=== PATIENT | female | born 1990 | race Caucasian/White ===

== ENCOUNTER 2019-04-22 15:07 | Emergency (ER) | payer MEDICAID ==
[~2019-04-22] VITALS: Ht 157.5 cm; Wt 126.6 kg
[~2019-04-22 15:07] MED LIST: ACET-787 PO; AMOX-842 PO; SULF-58 PO
[2019-04-22 15:21] VITALS: BP 148/83
--- NOTE | 2019-04-22 15:41 | NUR ---
PT BIB SELF C/O BL LEG PAIN X1 MONTH. PT REPORTS 10/10 SHARP PAIN ON LEGS THAT RADIATES TO BL THIGHS AND INCREASES W/ ADL'S. PT SEEN AT [facility] 1 MONTH AGO AND RECIEVED ABX TX FOR 1 MONTH, PT FINISHED ABX BUT REPORTS THAT PAIN AND SWELLING HAS INCREASES. + ERYTHEMA AND 1+ PITTING EDEMA IN BL LEGS. PT REPORTS PRESSURE CP X LAST NIGHT AND SOB, STATING SHE HAS ANXIETY. VSS. ER TO SEE PT. MEDHX:CHF, HTN, DM RX:NON-COMPLIANT
[2019-04-22] MEDS ORDERED: KETOROLAC 30 MG/ML VIAL IVP ONE (15:55)
[2019-04-22] MEDS ORDERED: NITROGLYCERIN 2% 1 GM PKT TP ONE (15:55)
--- NOTE | 2019-04-22 16:00 | NUR ---
PT BP 102/44, ER INFORMED, HOLD NITRO AT THIS TIME.
[2019-04-22] MEDS ORDERED: ceFAZolin 1,000 MG VIAL ONE (16:04)
--- NOTE | 2019-04-22 16:54 | NUR ---
LAB AT BEDSIDE AT THIS TIME
--- NOTE | 2019-04-22 17:09 | NUR ---
PT UNABLE TO GIVE URINE AT THIS TIME, SLADE ADAIR NOTIFIED
--- NOTE | 2019-04-22 17:31 | NUR ---
LAB AT BEDSIDE AT THIS TIME.
[2019-04-22 18:21] LABS: BASOPHILS % (AUTO) 0.4 % (0.0-2.0); EOSINOPHILS # (AUTO) 0.2 K/uL (0-0.4); EOSINOPHILS % (AUTO) 2.2 % (0.0-4.0); HEMOGLOBIN 9.6 g/dL (12.0-16.0); LYMPHOCYTES # (AUTO) 2.7 K/uL (2.5-16.5); LYMPHOCYTES % (AUTO) 25.2 % (20.5-51.1); MEAN CORPUSCULAR HEMOGLOBIN 21 pg (27-31); MEAN CORPUSCULAR HGB CONC 31 g/dL (33-37); MEAN CORPUSCULAR VOLUME 67.9 fL (80-94); MONOCYTES # (AUTO) 0.5 K/uL (0.8-1.0); MONOCYTES % (AUTO) 4.5 % (1.7-9.3); NEUTROPHILS # (AUTO) 7.2 K/uL (1.8-7.7); NEUTROPHILS % (AUTO) 67.7 % (42.2-75.2); PLATELET COUNT (AUTO) 239 K/uL (140-450); RED BLOOD CELL COUNT(AUTO) 4.57 MIL/uL (4.20-5.40); RED CELL DISTRIBUTION WIDTH 16.8 % (11.6-13.7)
--- NOTE | 2019-04-22 18:22 | NUR ---
PT STILL UNABLE TO PROVIDE URINE DENIA, SLADE ADAIR INFORMED
[2019-04-22 18:29] LABS: CREATININE 0.6 mg/dL (0.6-1.3)
[2019-04-22 18:35] LABS: ALBUMIN 3.1 g/dL (3.4-5.0); TOTAL BILIRUBIN 0.2 mg/dL (0.0-1.0)
[2019-04-22 18:37] LABS: WHITE BLOOD COUNT (AUTO) 11.2 K/uL (4.8-10.8)
[2019-04-22 19:10] VITALS: BP 111/68
--- NOTE | 2019-04-22 19:10 | NUR ---
Patient discharged with v/s stable. Written and verbal after care instructions given and explained. Patient alert, oriented and verbalized understanding of instructions. Ambulatory with steady gait. All questions addressed prior to discharge. ID band removed. Patient advised to follow up with PMD. Rx of CEPHALEXIN AND NAPROSYN given. Patient educated on indication of medication including possible reaction and side effects. Opportunity to ask questions provided and answered. PT PROVIDED WITH MEAL AND IS WEARING WEATHER APPROPRIATE CLOTHING.
== END 2019-04-22 19:10 | disposition home or self-care (01) ==
LOC: MED 15:07
DX: L03.115 Cellulitis of right lower limb (principal); L03.116 Cellulitis of left lower limb; I11.0 Hypertensive heart disease with heart failure; E11.9 Type 2 diabetes mellitus without complications; F15.10 Other stimulant abuse, uncomplicated; I50.9 Heart failure, unspecified; Z90.49 Acquired absence of other specified parts of digestive tract
CPT/HCPCS: 36415; 71045; 80053; 83605; 83880; 84484; 85025; 87040; 93005; 96365; 96375; 99284; J0690; J1885; J7060; Q0092

== ENCOUNTER 2020-07-05 14:53 | Emergency (ER) | payer MEDICAID ==
[~2020-07-05] VITALS: Ht 157.5 cm; Wt 129.3 kg
[2020-07-05 15:11] VITALS: BP 112/51
--- NOTE | 2020-07-05 15:15 | NUR ---
VOMITING X5 DAYS, UNABLE TO HOLD DOWN FOOD, STOPPED TAKING METFORMIN 2 MONTHS AGO MED HX: DM2 RX: METFORMIN
[2020-07-05 16:15] VITALS: BP 112/51
--- NOTE | 2020-07-05 16:15 | NUR ---
Patient discharged with v/s stable. Written and verbal after care instructions given and explained. Patient alert, oriented and verbalized understanding of instructions. Ambulatory with steady gait. All questions addressed prior to discharge. ID band removed. Patient advised to follow up with PMD. Rx of naprosyn, zofran given. Patient educated on indication of medication including possible reaction and side effects. Opportunity to ask questions provided and answered.
--- NOTE | 2020-07-05 16:15 | NUR ---
novel swab collected and sent to lab
== END 2020-07-05 16:15 | disposition home or self-care (01) ==
LOC: MED 14:53
DX: R11.2 Nausea with vomiting, unspecified (principal); Z20.828 Contact with and (suspected) exposure to other viral communicable diseases; M79.10 Myalgia, unspecified site; I11.0 Hypertensive heart disease with heart failure; I50.9 Heart failure, unspecified; E11.9 Type 2 diabetes mellitus without complications; Z90.49 Acquired absence of other specified parts of digestive tract
CPT/HCPCS: 99283; U0003

== ENCOUNTER 2021-11-21 06:49 | Observation (INO) | payer MEDICAID ==
[~2021-11-21] VITALS: Ht 160 cm; Wt 116.1 kg
[2021-11-21 06:52] VITALS: BP 120/63
--- NOTE | 2021-11-21 06:57 | NUR ---
Dr. Gant at triage to exam patient.
[2021-11-21] MEDS ORDERED: CLINDAMYCIN 600 MG in DEXTROSE 5% 50 ML IV ONE (07:00)
[2021-11-21] MEDS ORDERED: NACL 0.9% 500 ML IV ONE (07:00)
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
[2021-11-21 07:15] VITALS: BP 120/63
--- NOTE | 2021-11-21 07:17 | NUR ---
Pt report given to KEENAN RUIZ. Transfer of care at this time.
[2021-11-21] MEDS ORDERED: CLINDAMYCIN 600 MG/4 ML VIAL ONE (08:01)
[2021-11-21 08:10] LABS: ANION GAP 9.9 (8-16); CARBON DIOXIDE 26.7 mmol/L (21-32); CREATININE 0.6 mg/dL (0.6-1.3); POTASSIUM 3.6 mmol/L (3.5-5.1)
[2021-11-21 08:16] LABS: ALBUMIN 2.7 g/dL (3.4-5.0); TOTAL BILIRUBIN 0.4 mg/dL (0.0-1.0)
[2021-11-21 08:26] LABS: BASOPHILS % (AUTO) 0.3 % (0.0-2.0); EOSINOPHILS # (AUTO) 0.1 K/uL (0-0.4); EOSINOPHILS % (AUTO) 1.2 % (0.0-4.0); HEMATOCRIT 29.4 % (36-48); HEMOGLOBIN 9.2 g/dL (12.0-16.0); LYMPHOCYTES # (AUTO) 2.5 K/uL (2.5-16.5); LYMPHOCYTES % (AUTO) 26.1 % (20.5-51.1); MEAN CORPUSCULAR HEMOGLOBIN 20 pg (27-31); MEAN CORPUSCULAR HGB CONC 31 g/dL (33-37); MEAN CORPUSCULAR VOLUME 63.1 fL (80-94); MONOCYTES # (AUTO) 0.6 K/uL (0.8-1.0); MONOCYTES % (AUTO) 6.2 % (1.7-9.3); NEUTROPHILS # (AUTO) 6.3 K/uL (1.8-7.7); NEUTROPHILS % (AUTO) 66.2 % (42.2-75.2); PLATELET COUNT (AUTO) 236 K/uL (140-450); RED BLOOD CELL COUNT(AUTO) 4.66 MIL/uL (4.20-5.40); WHITE BLOOD COUNT (AUTO) 9.5 K/uL (4.8-10.8)
[2021-11-21] MEDS ORDERED: CEPH500C16 PO (10:23)
[2021-11-21] MEDS ORDERED: SULF-59 PO (10:24)
[2021-11-21] MEDS ORDERED: NACL 0.9% 1,000 ML IV SCH (10:25)
[2021-11-21] MEDS ORDERED: ACETAMINOPHEN 325 MG TAB PO PRN (10:25)
[2021-11-21] MEDS ORDERED: guaiFENesin DM 200/20 MG-10 ML 10 ML UDC PO PRN (10:25)
[2021-11-21] MEDS ORDERED: POTASSIUM CHLORIDE 10 MEQ TABER PO PRN (10:25)
[2021-11-21] MEDS ORDERED: ZOLPIDEM 5 MG TAB PO PRN (10:25)
[2021-11-21] MEDS ORDERED: HYDROcodone/APAP 7.5/325 MG 1 TAB PO PRN (10:25)
[2021-11-21] MEDS ORDERED: ONDANSETRON 4 MG/2 ML VIAL IM/IVP PRN (10:25)
[2021-11-21] MEDS ORDERED: DOCUSATE SODIUM 100 MG GELCAP PO PRN (10:25)
--- NOTE | 2021-11-21 10:25 | NUR ---
DR DING AT BEDSIDE
--- NOTE | 2021-11-21 10:26 | NUR ---
Patient does not wish to proceed with medical care recommended by SEKOU/TOÑA. Patient given information related to possible complications, up to and including , which could occur as a result of leaving hospital at this time. Patient verbalizes understanding of risks involved leaving against medical advice. Patient has signed AMA form.
[2021-11-22] MEDS ORDERED: PANTOPRAZOLE 40 MG TABEC PO SCH (09:00)
== END 2021-11-21 10:26 | disposition left against medical advice (07) ==
LOC: MED 06:49 → MMU 10:14 → INTOOBSV 10:14
PROVIDERS: ADMIT Family Medicine; ATTEND Family Medicine
DX: S60.561A Insect bite (nonvenomous) of right hand, initial encounter (principal); Z20.822 Contact with and (suspected) exposure to COVID-19; L03.113 Cellulitis of right upper limb; I50.9 Heart failure, unspecified; D64.9 Anemia, unspecified; E66.01 Morbid (severe) obesity due to excess calories; E87.1 Hypo-osmolality and hyponatremia; E43 Unspecified severe protein-calorie malnutrition; E11.9 Type 2 diabetes mellitus without complications; F15.90 Other stimulant use, unspecified, uncomplicated; F17.210 Nicotine dependence, cigarettes, uncomplicated; W57.XXXA Bitten or stung by nonvenomous insect and other nonvenomous arthropods, initial encounter; Y93.89 Activity, other specified; Y92.89 Other specified places as the place of occurrence of the external cause; Z91.19 Patient's noncompliance with other medical treatment and regimen; Z53.29 Procedure and treatment not carried out because of patient's decision for other reasons; Z79.899 Other long term (current) drug therapy
CPT/HCPCS: 36415; 73130; 80053; 82948; 83605; 85025; 87040; 87426; 96360; 99291; G0378; J3490; J7030

== ENCOUNTER 2021-11-25 00:45 | Emergency (ER) | payer MEDICAID ==
[~2021-11-25] VITALS: Ht 160 cm; Wt 113.4 kg
[~2021-11-25 00:45] MED LIST changes: -ACET-787 PO; -AMOX-842 PO; +CEPH500C16 PO; -SULF-58 PO; +SULF-59 PO
[2021-11-25 00:49] VITALS: BP 112/86
--- NOTE | 2021-11-25 00:49 | NUR ---
ART KEARNS ALS TO ER BED 06
--- NOTE | 2021-11-25 00:49 | NUR ---
PATIENT TO BED 6
[2021-11-25] MEDS ORDERED: KETOROLAC 30 MG/ML VIAL IVP ONE (01:20)
[2021-11-25] MEDS ORDERED: NACL 0.9% 1,000 ML IV ONE (01:20)
[2021-11-25] MEDS ORDERED: METOCLOPRAMIDE 10 MG/2 ML INJ VIAL IVP ONE (01:20)
[2021-11-25 02:08] LABS: BASOPHILS # (AUTO) 0.1 K/uL (0.00-0.22); BASOPHILS % (AUTO) 0.9 % (0.0-2.0); EOSINOPHILS % (AUTO) 0.4 % (0.0-4.0); HEMATOCRIT 33.8 % (36-48); HEMOGLOBIN 10.6 g/dL (12.0-16.0); LYMPHOCYTES # (AUTO) 1.4 K/uL (2.5-16.5); LYMPHOCYTES % (AUTO) 14.7 % (20.5-51.1); MEAN CORPUSCULAR HEMOGLOBIN 20 pg (27-31); MEAN CORPUSCULAR HGB CONC 31 g/dL (33-37); MEAN CORPUSCULAR VOLUME 63.2 fL (80-94); MONOCYTES # (AUTO) 0.6 K/uL (0.8-1.0); MONOCYTES % (AUTO) 5.8 % (1.7-9.3); NEUTROPHILS # (AUTO) 7.7 K/uL (1.8-7.7); NEUTROPHILS % (AUTO) 78.2 % (42.2-75.2); PLATELET COUNT (AUTO) 342 K/uL (140-450); RED BLOOD CELL COUNT(AUTO) 5.35 MIL/uL (4.20-5.40); RED CELL DISTRIBUTION WIDTH 16.9 % (11.6-13.7); WHITE BLOOD COUNT (AUTO) 9.9 K/uL (4.8-10.8)
[2021-11-25] MEDS ORDERED: METOCLOPRAMIDE 10 MG TAB PO ONE (02:10)
[2021-11-25] MEDS ORDERED: ACETAMINOPHEN 325 MG TAB PO ONE (02:10)
[2021-11-25] MEDS ORDERED: IBUPROFEN 600 MG TAB PO ONE (02:10)
[2021-11-25 02:37] LABS: ALBUMIN 3.1 g/dL (3.4-5.0); ANION GAP 15.7 (8-16); CARBON DIOXIDE 20.8 mmol/L (21-32); CREATININE 0.5 mg/dL (0.6-1.3); POTASSIUM 4.5 mmol/L (3.5-5.1); TOTAL BILIRUBIN 0.3 mg/dL (0.0-1.0)
--- NOTE | 2021-11-25 02:49 | NUR ---
31 Y/O F BIBA BY ALS FOR CHEST PAIN AND HEAD PAIN X10 . PATIENT STATES "SHES IN ALOT OF PAIN" AND " NEEDS HELP" PT WAS SEEN HERE LAST WEEK FOR A BUG BITE ULCER. PT STATES LAST TIME SHE USED [facility] WAS 5 DAYS AGO. PT HAS INCREASED RESPIRATIONS. PT IS AX0X3 AND IS AMBULATORY. DENIES N/F/V/D/COUGH PT HAS HX OF CHF, DM MEDS: UNKNOWN
[2021-11-25] MEDS ORDERED: ACET-10509 PO (04:10)
[2021-11-25] MEDS ORDERED: IBUP-2213 PO (04:10)
--- NOTE | 2021-11-25 04:19 | NUR ---
xr at bedside
[2021-11-25 05:10] VITALS: BP 120/62
--- NOTE | 2021-11-25 05:10 | NUR ---
Patient discharged with v/s stable. Written and verbal after care instructions given and explained. Patient verbalized understanding. Ambulatory with steady gait. All questions addressed prior to discharge. Advised to follow up with PMD. HOMELESS/ SUBSTANCE ABUSE PACKET PROVIDED. MEAL PROVIDED. CALLED HOUSE SUP FOR UBER RIDE BACK HOME
--- NOTE | 2021-11-25 05:44 | NUR ---
The patient's care was reviewed and supervised by Kathy Canchola RN. Chart checked.
== END 2021-11-25 05:10 | disposition home or self-care (01) ==
LOC: MED 00:45
DX: R51.9 Headache, unspecified (principal); R07.9 Chest pain, unspecified; I10 Essential (primary) hypertension; E11.9 Type 2 diabetes mellitus without complications; I50.9 Heart failure, unspecified; Z20.822 Contact with and (suspected) exposure to COVID-19
CPT/HCPCS: 36415; 71045; 80053; 83880; 84484; 85025; 87426; 93005; 99285; J8597; Q0092

== ENCOUNTER 2021-11-27 12:46 | Emergency (ER) | payer MEDICAID ==
[~2021-11-27] VITALS: Ht 160 cm; Wt 122.0 kg
[~2021-11-27 12:46] MED LIST changes: +ACET-10509 PO; +IBUP-2213 PO
[2021-11-27 13:17] VITALS: BP 146/83
--- NOTE | 2021-11-27 13:25 | NUR ---
PT AMB TO BED 12
--- NOTE | 2021-11-27 14:10 | NUR ---
[facility] BEDSIDE EVALUATING PT
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
[2021-11-27] MEDS ORDERED: BACITRACIN OINT 500 UNITS/GM PKT TP ONE (14:20)
[2021-11-27] MEDS ORDERED: IBUPROFEN 600 MG TAB PO ONE (14:20)
[2021-11-27] MEDS ORDERED: CEPH-588 PO (15:09)
[2021-11-27] MEDS ORDERED: SULF-58 PO (15:09)
[2021-11-27] MEDS ORDERED: BACI1PAC6 TP (15:09)
[2021-11-27] MEDS ORDERED: IBUP-2213 PO (15:09)
--- NOTE | 2021-11-27 15:25 | NUR ---
Patient discharged with v/s stable. Written and verbal after care instructions given and explained. Patient alert, oriented and verbalized understanding of instructions. Ambulatory with steady gait. All questions addressed prior to discharge. ID band removed. Patient advised to follow up with PMD. Rx of KEFLEX, BACITRACIN, IBUPROFEN, AND BACTRIM given. Patient educated on indication of medication including possible reaction and side effects. Opportunity to ask questions provided and answered. PT PROVIDED WITH MAINOR CUEVAS, AND SEBASTIAN
== END 2021-11-27 15:23 | disposition home or self-care (01) ==
LOC: MED 12:46
DX: L03.113 Cellulitis of right upper limb (principal); E11.9 Type 2 diabetes mellitus without complications; I10 Essential (primary) hypertension; I50.9 Heart failure, unspecified
CPT/HCPCS: 99283

== ENCOUNTER 2024-05-10 17:59 | Emergency (ER) | payer MEDICAID ==
[~2024-05-10] VITALS: Ht 160 cm; Wt 131.5 kg
[~2024-05-10 17:59] MED LIST changes: -ACET-10509 PO; +ACET500T99 PO; +BACI-418 TP; +CEPH-588 PO; +SULF-58 PO
[2024-05-10 18:05] VITALS: BP 122/78; PULSE 84; RESP 18; TEMP 98; O2SAT 99
[2024-05-10] MEDS ORDERED: LIDOCAINE OINTMENT 5% 35 GM TUBE TP ONE (19:25)
[2024-05-10] MEDS ORDERED: FURO-572 PO (19:32)
[2024-05-10] MEDS ORDERED: BACI-418 TP (19:32)
[2024-05-10] MEDS ORDERED: LIDOCAINE 2% 100 MG/5 ML UJET TP ONE ×2 (19:54→20:15)
[2024-05-10] MEDS: BACITRACIN OINT 500 UNITS/GM PKT TP ONE (20:43)
== END 2024-05-10 20:52 | disposition home or self-care (01) ==
LOC: MED 17:59
DX: S01.03XA Puncture wound without foreign body of scalp, initial encounter (principal); I10 Essential (primary) hypertension; I50.9 Heart failure, unspecified; E11.9 Type 2 diabetes mellitus without complications; F11.90 Opioid use, unspecified, uncomplicated; Z79.899 Other long term (current) drug therapy; V00.141A Fall from scooter (nonmotorized), initial encounter; Y93.55 Activity, bike riding; Y92.410 Unspecified street and highway as the place of occurrence of the external cause; Y99.8 Other external cause status
CPT/HCPCS: 12001; 99282